=== PATIENT | female | born 1960 | race Caucasian/White ===

== ENCOUNTER 2017-07-20 06:27 | Day surgery (SDC) | END 2017-07-20 11:58 | disposition home or self-care (01) ==

== ENCOUNTER 2017-08-20 10:03 | Day surgery (SDC) | END 2017-08-20 17:10 | disposition home or self-care (01) ==

== ENCOUNTER 2018-10-04 22:59 | Inpatient (IN) | payer OTHER ==
[~2018-10-04] VITALS: Ht 165.1 cm; Wt 66.2 kg
[~2018-10-04 22:59] MED LIST: INSU300I SQ; NOVO3I SC
[2018-10-05] VITALS (11 sets, daily range): BP systolic 96–119; BP diastolic 56–67; PULSE 77–88; RESP 17–18; Ht 165.1 cm; Wt 66.2 kg
[2018-10-05] MEDS ORDERED: SOD CHLORIDE 0.9% 1,000 ML IV ONE (01:30)
[2018-10-05] MEDS ORDERED: INSULIN REGULAR, HUMAN 100 UNIT/1 ML 3ML VIAL SC ONE (01:30)
--- NOTE | 2018-10-05 01:35 | ERD ---
ER Documentation Chief Complaint Chief Complaint HX OF BREAST CA, MASTECTOMY OF L BREAST; AREA NOW BLEEDING HPI This is a 58-year-old female with a prior history of invasive breast cancer who presents for evaluation of bleeding from her left breast site. This happened earlier today, she is currently on chemotherapy, she is followed by Dr. Nash from a surgical standpoint. She denies fever, she has a history of diabetes. A Kerlix band was placed to help control the bleeding. ROS All systems reviewed and are negative except as per history of present illness. Medications Home Meds Reported Medications Insulin Glargine,Hum.rec.anlog (Toujeo Solostar) 300 Unit/1 Ml Insuln.pen, 12 UNIT SQ QHS, EA 07/20/17 Insulin Aspart* (Novolog Insulin Pen*) 100 Unit/Ml Soln, 0 SC .SLIDING SCALE AC, EA 07/20/17 Allergies Allergies: Coded Allergies: cephalexin (Verified Allergy, Unknown, RASH ITCHY, 08/20/17) PMhx/Soc History of Surgery: Yes (LT MASTECTOMY,BREAST IMPLANTS,TUMMY TUCK,LAP BAND) Anesthesia Reaction: Yes (N/V) Hx Neurological Disorder: No Hx Respiratory Disorders: No Hx Cardiac Disorders: No Hx Psychiatric Problems: No Hx Miscellaneous Medical Probl: Yes (LT BREAST CA) Hx Alcohol Use: No Hx Substance Use: No Hx Tobacco Use: No Smoking Status: Never smoker Physical Exam Vitals Vital Signs Date Temp Pulse Resp B/P (MAP) Pulse Ox O2 O2 Flow FiO2 Time Delivery Rate 10/04/18 98.5 105 18 155/72 98 23:02 (99) Physical Exam Const: No acute distress Head: Atraumatic Eyes: Normal Conjunctiva ENT: Normal External Ears, Nose and Mouth. Neck: Full range of motion. No meningismus. Resp: Clear to auscultation bilaterally Cardio: Regular rate and rhythm, no murmurs Chest wall: Left breast area, shows evidence of malignancy, there is some bleeding noted at the 4 o'clock position Abd: Soft, non tender, non distended. Normal bowel sounds Skin: No petechiae or rashes Back: No midline or flank tenderness Ext: No cyanosis, or edema Neur: Awake and alert Psych: Normal Mood and Affect Result Diagram: 10/05/18 0026 10/05/18 0026 Results 24 hrs Laboratory Tests Test 10/05/18 00:26 10/05/18 02:05 White Blood Count 4.9 10^3/ul Red Blood Count 3.26 10^6/ul Hemoglobin 9.4 g/dl Hematocrit 28.3 % Mean Corpuscular Volume 86.8 fl Mean Corpuscular Hemoglobin 28.8 pg Mean Corpuscular Hemoglobin Concent 33.2 g/dl Red Cell Distribution Width 13.7 % Platelet Count 279 10^3/UL Mean Platelet Volume 10.4 fl Immature Granulocytes % 0.200 % Neutrophils % 86.2 % Lymphocytes % 11.2 % Monocytes % 2.2 % Eosinophils % 0.0 % Basophils % 0.2 % Nucleated Red Blood Cells % 0.0 /100WBC Immature Granulocytes # 0.010 10^3/ul Neutrophils # 4.3 10^3/ul Lymphocytes # 0.6 10^3/ul Monocytes # 0.1 10^3/ul Eosinophils # 0.0 10^3/ul Basophils # 0.0 10^3/ul Nucleated Red Blood Cells # 0.0 10^3/ul Prothrombin Time 12.2 Sec Prothrombin Time Ratio 1.0 INR International Normalized Ratio 0.89 Sodium Level 130 mmol/L Potassium Level 4.7 mmol/L Chloride Level 93 mmol/L Carbon Dioxide Level 26 mmol/L Anion Gap 11 Blood Urea Nitrogen 16 mg/dl Creatinine 0.50 mg/dl Est Glomerular Filtrat Rate mL/min > 60 mL/min Glucose Level 702 mg/dl Calcium Level 9.3 mg/dl Total Bilirubin 0.3 mg/dl Direct Bilirubin 0.00 mg/dl Indirect Bilirubin 0.3 mg/dl Aspartate Amino Transf (AST/SGOT) 39 IU/L Alanine Aminotransferase (ALT/SGPT) 27 IU/L Alkaline Phosphatase 141 IU/L Troponin I < 0.012 ng/ml Total Protein 6.9 g/dl Albumin 4.0 g/dl Globulin 2.90 g/dl Albumin/Globulin Ratio 1.37 Bedside Glucose 526 mg/dL Current Medications Medications Dose Sig/Valery Start Time Status Last (Trade) Ordered Route PRN Stop Time Admin Dose Reason Admin Insulin 18 unit ONCE ONCE 10/05/18 DC 10/05/18 Human SC 01:30 10/05/18 02:07 Regular 01:31 (Humulin R) Sodium 1,000 ml @ Q1H ONCE 10/05/18 10/05/18 Chloride 1,000 mls/hr IV 01:30 10/05/18 02:06 02:29 Ondansetron 4 mg ER BRIDGE 10/05/18 HCl (Zofran PRN IV 02:30 10/06/18 Inj) NAUSEA/VOMITI 02:29 NG 650 mg ER BRIDGE 10/05/18 Acetaminophen PRN PO 02:30 10/06/18 (Tylenol .MILD PAIN 02:29 Tab) 1-3 OR TEMP Procedures/MDM This is a 58-year-old female presents for evaluation of bleeding to her left breast, this is in the setting of invasive breast cancer. I spoke with the patient's surgeon, Dr. Hi who recommended that the patient be admitted, and have inpatient evaluation. Dr. Combs is covering for him. Bleeding was control led with pressure, her hemoglobin was 9.4, at this point she does not require transfusion. Her insulin was noted to be in the 700s, she has no evidence of DKA, she will get be given insulin and IV fluids and blood sugar will be rechecked. EKG: Rate/Rhythm: Normal Sinus Rhythm QRS, ST, T-waves: No changes consistent w/ acute ischemia Impression: No evidence of ischemia or arrhythmia Accepting Care Team: Current data and ongoing care discussed. Primary: Bulmaro Consulting: Charity Outstanding Data: none Departure Diagnosis: Primary Impression: Bleeding Additional Impression: Hyperglycemia Condition: Stable JHOANA LAUREN MD Oct 05, 2018 01:35
[2018-10-05] MEDS ORDERED: ACETAMINOPHEN 325 MG TAB PO PRN ×2 (02:30→03:00)
[2018-10-05] MEDS ORDERED: ONDANSETRON 4 MG INJ IV PRN ×2 (02:30→03:00)
[2018-10-05] MEDS: SOD CHLORIDE 0.45% 1,000 ML IV SCH ×2 (02:37→23:19)
[2018-10-05] MEDS ORDERED: NACL 0.9% 3 ML SYG IV SCH (03:00)
[2018-10-05] MEDS ORDERED: NITROGLYCERIN (SL) 0.4 MG TAB SL PRN (03:00)
[2018-10-05] MEDS ORDERED: MAGNESIUM HYDROXIDE 30ML CUP PO PRN (03:00)
[2018-10-05] MEDS ORDERED: GLUCOSE GEL 15 GRAM TUBE BUCCAL PRN (03:00)
[2018-10-05] MEDS ORDERED: DEXTROSE 50% 50 ML SYRINGE IV PRN ×2 (03:00)
[2018-10-05] MEDS ORDERED: GLUCOSE GEL 15 GRAM TUBE PO PRN ×2 (03:00)
[2018-10-05] MEDS ORDERED: ALBUTEROL/IPRATROPIUM (NEB) 3 ML AMP HHN PRN (03:00)
[2018-10-05] MEDS ORDERED: LORAZEPAM 2 MG INJ IV PRN (03:00)
[2018-10-05] MEDS ORDERED: HYDROCODONE/APAP (5/325) TAB PO PRN (03:00)
[2018-10-05] MEDS ORDERED: hydrALAzine 20 MG INJ IV PRN (03:00)
[2018-10-05] MEDS ORDERED: GLUCAGON 1 MG INJ IM PRN (03:00)
[2018-10-05] MEDS ORDERED: DOCUSATE SODIUM 100 MG CAP PO PRN (03:00)
[2018-10-05] MEDS ORDERED: morphine 2 MG INJ IV PRN (03:00)
[2018-10-05] MEDS: INSULIN ASPART [NOVOLOG] 3 ML PEN SC SCH ×5 (05:23→21:41)
[2018-10-05] MEDS: PANTOPRAZOLE (EC) 40 MG TAB PO SCH (06:27)
--- NOTE | 2018-10-05 06:38 | HP ---
Date/Time of Note Date/Time of Note DATE: 10/05/18 TIME: 06:30 Assessment/Plan VTE Prophylaxis SCD applied (from Nsg): Yes Pharmacological prophylaxis: NA/contraindicated Pharm contraindication: bleeding Lines/Catheters IV Catheter Type (from Nrsg): port Assessment/Plan Hospital Course Assessment and plan: 58-year-old female with past medical history of diabetes, invasive breast cancer presently on chemotherapy, who presents for evaluation of bleeding from her left breast site 1. Bleeding from left breast area: Could be related to patient's malignancy and the fact that she has been on chemotherapy recently. Hemoglobin on admission 9.4 -For now continue dressing changes, get wound care consult, hematology oncology consult and general surgery consult -Follow-up TSH, A1c, lipid panel, continue IV fluids and pain control medications 2. Hyperglycemia: Appears to be uncontrolled diabetes, no signs of DKA but sugars were in the 500 range on admission. Presently down to 312. -Continue sliding scale insulin, add Lantus, follow-up A1c Result Diagram: 10/05/18 0026 10/05/18 0026 Results 24hrs Laboratory Tests Test 10/05/18 00:26 10/05/18 02:05 10/05/18 04:49 10/05/18 05:31 White Blood Count 4.9 # Red Blood Count 3.26 L Hemoglobin 9.4 #L Hematocrit 28.3 #L Mean Corpuscular Volume 86.8 Mean Corpuscular 28.8 L Hemoglobin Mean Corpuscular 33.2 Hemoglobin Concent Red Cell Distribution 13.7 Width Platelet Count 279 # Mean Platelet Volume 10.4 Immature Granulocytes % 0.200 Neutrophils % 86.2 H Lymphocytes % 11.2 L Monocytes % 2.2 Eosinophils % 0.0 Basophils % 0.2 Nucleated Red Blood 0.0 Cells % Immature Granulocytes # 0.010 Neutrophils # 4.3 Lymphocytes # 0.6 L Monocytes # 0.1 L Eosinophils # 0.0 Basophils # 0.0 Nucleated Red Blood 0.0 Cells # Prothrombin Time 12.2 13.2 Prothrombin Time Ratio 1.0 1.0 INR International 0.89 0.99 Normalized Ratio Sodium Level 130 L Potassium Level 4.7 Chloride Level 93 L Carbon Dioxide Level 26 Anion Gap 11 Blood Urea Nitrogen 16 Creatinine 0.50 Est Glomerular Filtrat > 60 Rate mL/min Glucose Level 702 *H Calcium Level 9.3 Total Bilirubin 0.3 Direct Bilirubin 0.00 Indirect Bilirubin 0.3 Aspartate Amino 39 Transf (AST/SGOT) Alanine 27 Aminotransferase (ALT/SG PT) Alkaline Phosphatase 141 H Troponin I < 0.012 Total Protein 6.9 Albumin 4.0 Globulin 2.90 Albumin/Globulin Ratio 1.37 Free Thyroxine 1.59 Bedside Glucose 526 *H 364 H Activated 23.5 Partial Thromboplast Time Test 10/05/18 05:55 Bedside Glucose 312 H HPI/ROS Admit Date/Time Admit Date/Time Oct 05, 2018 at 02:11 Hx of Present Illness 58-year-old female with past medical history of diabetes, invasive breast cancer presently on chemotherapy, who presents for evaluation of bleeding from her left breast site. She has noted the bleeding going on for the last 2 days. Denied any upper or lower GI bleeding, no nausea vomiting, no fevers or chills, no diarrhea constipation. Her surgeon is Dr. Nash, her hematology oncology doctor is Dr. Orellana. In the ER today A Kerlix band was placed to help control the bleeding. PMH/Family/Social Past Medical History Medications Current Medications Ondansetron HCl (Zofran Inj) 4 mg ER BRIDGE PRN IV NAUSEA/VOMITING; Start 10/05/18 at 02:30; Stop 10/06/18 at 02:29 Acetaminophen (Tylenol Tab) 650 mg ER BRIDGE PRN PO .MILD PAIN 1-3 OR TEMP; Start 10/05/18 at 02:30; Stop 10/06/18 at 02:29 Miscellaneous Information 12 unit QHS SQ ; Start 10/05/18 at 21:00; Status UNV IV Flush (NS 3 ml) 3 ml PER PROTOCOL IV ; Start 10/05/18 at 03:00 Ondansetron HCl (Zofran Inj) 4 mg Q6H PRN IV NAUSEA/VOMITING; Start 10/05/18 at 03:00 Acetaminophen (Tylenol Tab) 650 mg Q6H PRN PO .PAIN 1-3 OR TEMP; Start 10/05/18 at 03:00 Acetaminophen/ Hydrocodone Bitart ([place] (5/325)) 1 tab Q6H PRN PO .MOD PAIN 4- 6; Start 10/05/18 at 03:00 Morphine Sulfate (morphine) 2 mg Q4H PRN IV .SEVERE PAIN 7-10; Start 10/05/18 at 03:00 Docusate Sodium (Colace) 100 mg Q12H PRN PO .CONSTIPATION; Start 10/05/18 at 03:00 Magnesium Hydroxide (Milk Of Mag) 30 ml DAILY PRN PO .CONSTIPATION; Start 10/05/18 at 03:00 Pantoprazole (Protonix Tab) 40 mg DAILY@06 PO Last administered on 10/05/18at 06:27; Admin Dose 40 MG; Start 10/05/18 at 06:00 Heparin Sodium (Porcine) (Heparin (5000 Units/1ml)) 5,000 unit Q12 SC ; Start 10/05/18 at 09:00 Sodium Chloride 1,000 ml @ 75 mls/hr [id number] IV Last administered on 10/05/18at 02:37; Admin Dose 75 MLS/HR; Start 10/05/18 at 02:37 Lorazepam (Ativan) 0.5 mg Q6H PRN IV ANXIETY; Start 10/05/18 at 03:00 Albuterol/ Ipratropium (Duoneb) 3 ml Q4H RESP THERAPY PRN HHN SHORTNESS OF BREATH; Start 10/05/18 at 03:00 Hydralazine HCl (Apresoline) 10 mg Q6H PRN IV ELEVATED BLOOD PRESSURE; Start 10/05/18 at 03:00 Clonidine (Catapres) 0.1 mg Q6H PRN PO ELEVATED BLOOD PRESSURE; Start 10/05/18 at 03:00 Nitroglycerin (Nitroglycerin (Sl Tab) 0.4 Mg) 1 tab Q5M PRN SL ANGINA; Start 10/05/18 at 03:00 Diagnostic Test (Pha) (Accu-Chek) 1 ea 02 XX ; Start 10/06/18 at 02:00 Insulin Aspart (Novolog Insulin Pen) NOVOLOG *MILD* ALGORI... Q4 SC Last administered on 10/05/18at 05:23; Admin Dose 7 UNIT; Start 10/05/18 at 05:00 Miscellaneous Information 1 ea NOTE XX ; Start 10/05/18 at 03:00 Glucose (Glutose) 15 gm Q15M PRN PO DECREASED GLUCOSE; Start 10/05/18 at 03:00 Glucose (Glutose) 22.5 gm Q15M PRN PO DECREASED GLUCOSE; Start 10/05/18 at 03:00 Dextrose (D50w Syringe) 25 ml Q15M PRN IV DECREASED GLUCOSE; Start 10/05/18 at 03:00 Dextrose (D50w Syringe) 50 ml Q15M PRN IV DECREASED GLUCOSE; Start 10/05/18 at 03:00 Glucagon (Glucagen) 1 mg Q15M PRN IM DECREASED GLUCOSE; Start 10/05/18 at 03:00 Glucose (Glutose) 15 gm Q15M PRN BUCCAL DECREASED GLUCOSE; Start 10/05/18 at 03:00 Coded Allergies: cephalexin (Verified Allergy, Unknown, RASH ITCHY, 08/20/17) Past Surgical History Past Surgical Hx: other (LT MASTECTOMY,BREAST IMPLANTS,TUMMY TUCK,LAP BAND) Social History Alcohol Use: none Smoking Status: Never smoker Drug Use: none Exam/Review of Systems Vital Signs Vitals Vital Signs Date Temp Pulse Resp B/P (MAP) Pulse Ox O2 O2 Flow FiO2 Time Delivery Rate 10/05/18 80 06:17 10/05/18 17 125/75 98 Room Air 05:30 (92) 10/04/18 98.5 23:02 Exam Exam Gen: Lying in bed, no acute distress Head: Atraumatic. Eyes: Normal Conjunctiva. ENT: Normal External Ears, Nose and Mouth. Neck: Full range of motion. No meningismus. Chest wall: Left breast area, shows evidence of malignancy, there is some bleeding noted at the 4 o'clock position Resp: Clear to auscultation bilaterally. Cardio: Regular rate and rhythm. Abd: Soft, nondistended, normal bowel sounds, non tender. Ext: No lower extremity edema bilaterally Neuro: No focal deficits ALEXIA DYER Oct 05, 2018 06:38
[2018-10-05] MEDS ORDERED: INSULIN GLARGINE [LANTus] (100 UNITS/ML) SYG SC SCH (08:00)
[2018-10-05] MEDS ORDERED: GABAPENTIN 100 MG CAP PO SCH (09:00)
[2018-10-05] MEDS ORDERED: HEPARIN 5,000 UNIT/1 ML VIAL SC SCH (09:00)
--- NOTE | 2018-10-05 10:56 | PN ---
Date/Time of Note Date/Time of Note DATE: 10/05/18 TIME: 10:53 Assessment/Plan VTE Prophylaxis SCD applied (from Nsg): Yes SCD contraindicated: low risk/ambulating Pharmacological prophylaxis: NA/contraindicated Pharm contraindication: low risk/ambulating, bleeding Lines/Catheters [facility] Assessment/Plan Problems: (1) Diabetes mellitus type 2 in nonobese Status: Chronic Comment: Her blood sugars are coming under control nicely. Continue current treatment and adjustment. (2) Anemia Status: Chronic Comment: Continue to follow the H&H due to the history of bleeding. Qualifiers: Anemia type: unspecified type Qualified Codes: D64.9 - Anemia, unspecified (3) Carcinoma of left breast Onset Date: ~ 09/2013 Status: Chronic Comment: Oncology will be seeing the patient. In addition I will ask radiation oncology to see her. These note if the bleeding is coming from an esophageal source as opposed to other we will cover for that Qualifiers: Breast location: unspecified site of breast Estrogen receptor status: negative Patient sex: female Qualified Codes: C50.912 - Malignant neoplasm of unspecified site of left female breast; Z17.1 - Estrogen receptor negative status [ER-] (4) Port-A-Cath in place Status: Chronic Comment: Noted. (5) Bleeding Status: Acute Comment: Cover for GI source, follow H&H (6) History of laparoscopic adjustable gastric banding Status: Chronic Comment: Noted. Result Diagram: 10/05/18 0026 10/05/18 0026 Results 24hrs Laboratory Tests Test 10/05/18 00:26 10/05/18 02:05 10/05/18 04:49 10/05/18 05:31 White Blood Count 4.9 # Red Blood Count 3.26 L Hemoglobin 9.4 #L Hematocrit 28.3 #L Mean Corpuscular Volume 86.8 Mean Corpuscular 28.8 L Hemoglobin Mean Corpuscular 33.2 Hemoglobin Concent Red Cell Distribution 13.7 Width Platelet Count 279 # Mean Platelet Volume 10.4 Immature Granulocytes % 0.200 Neutrophils % 86.2 H Lymphocytes % 11.2 L Monocytes % 2.2 Eosinophils % 0.0 Basophils % 0.2 Nucleated Red Blood 0.0 Cells % Immature Granulocytes # 0.010 Neutrophils # 4.3 Lymphocytes # 0.6 L Monocytes # 0.1 L Eosinophils # 0.0 Basophils # 0.0 Nucleated Red Blood 0.0 Cells # Prothrombin Time 12.2 13.2 Prothrombin Time Ratio 1.0 1.0 INR International 0.89 0.99 Normalized Ratio Sodium Level 130 L Potassium Level 4.7 Chloride Level 93 L Carbon Dioxide Level 26 Anion Gap 11 Blood Urea Nitrogen 16 Creatinine 0.50 Est Glomerular Filtrat > 60 Rate mL/min Glucose Level 702 *H Calcium Level 9.3 Total Bilirubin 0.3 Direct Bilirubin 0.00 Indirect Bilirubin 0.3 Aspartate Amino 39 Transf (AST/SGOT) Alanine 27 Aminotransferase (ALT/SG PT) Alkaline Phosphatase 141 H Troponin I < 0.012 Total Protein 6.9 Albumin 4.0 Globulin 2.90 Albumin/Globulin Ratio 1.37 Free Thyroxine 1.59 Bedside Glucose 526 *H 364 H Activated 23.5 Partial Thromboplast Time Test 10/05/18 05:55 10/05/18 08:02 Bedside Glucose 312 H 196 Subjective 24 Hr Interval Summary Free Text/Dictation Patient reports that she was not bleeding from the left breast site although the ER nurses notes state that, the ER doctor's notes state that, and the admission physician states that. She states that she was bleeding from her esophageal ulcers and it has fortunately stopped. Regardless she was reporting that there is no further bleeding Constitutional: no complaints Respiratory: no complaints Cardiovascular: no complaints Gastrointestinal: no complaints Exam/Review of Systems Exam Vitals Vital Signs Date Temp Pulse Resp B/P (MAP) Pulse Ox O2 O2 Flow FiO2 Time Delivery Rate 10/05/18 81 08:04 10/05/18 98.4 18 114/56 97 Room Air 07:43 (75) Constitutional: alert, oriented Neck: supple, non-tender Respiratory: clear to auscultation, normal air movement, other (No evidence of bleeding from the area of the breast prior surgeries, bilateral implants) Cardiovascular: regular rate and rhythm, nl pulses Gastrointestinal: soft, nl liver, spleen, non-tender Results Results 24hrs Laboratory Tests Test 10/05/18 00:26 10/05/18 02:05 10/05/18 04:49 10/05/18 05:31 White Blood Count 4.9 # Red Blood Count 3.26 L Hemoglobin 9.4 #L Hematocrit 28.3 #L Mean Corpuscular Volume 86.8 Mean Corpuscular 28.8 L Hemoglobin Mean Corpuscular 33.2 Hemoglobin Concent Red Cell Distribution 13.7 Width Platelet Count 279 # Mean Platelet Volume 10.4 Immature Granulocytes % 0.200 Neutrophils % 86.2 H Lymphocytes % 11.2 L Monocytes % 2.2 Eosinophils % 0.0 Basophils % 0.2 Nucleated Red Blood 0.0 Cells % Immature Granulocytes # 0.010 Neutrophils # 4.3 Lymphocytes # 0.6 L Monocytes # 0.1 L Eosinophils # 0.0 Basophils # 0.0 Nucleated Red Blood 0.0 Cells # Prothrombin Time 12.2 13.2 Prothrombin Time Ratio 1.0 1.0 INR International 0.89 0.99 Normalized Ratio Sodium Level 130 L Potassium Level 4.7 Chloride Level 93 L Carbon Dioxide Level 26 Anion Gap 11 Blood Urea Nitrogen 16 Creatinine 0.50 Est Glomerular Filtrat > 60 Rate mL/min Glucose Level 702 *H Calcium Level 9.3 Total Bilirubin 0.3 Direct Bilirubin 0.00 Indirect Bilirubin 0.3 Aspartate Amino 39 Transf (AST/SGOT) Alanine 27 Aminotransferase (ALT/SG PT) Alkaline Phosphatase 141 H Troponin I < 0.012 Total Protein 6.9 Albumin 4.0 Globulin 2.90 Albumin/Globulin Ratio 1.37 Free Thyroxine 1.59 Bedside Glucose 526 *H 364 H Activated 23.5 Partial Thromboplast Time Test 10/05/18 05:55 10/05/18 08:02 Bedside Glucose 312 H 196 Medications Medication Current Medications Ondansetron HCl (Zofran Inj) 4 mg ER BRIDGE PRN IV NAUSEA/VOMITING; Start 10/05/18 at 02:30; Stop 10/06/18 at 02:29 Acetaminophen (Tylenol Tab) 650 mg ER BRIDGE PRN PO .MILD PAIN 1-3 OR TEMP; Start 10/05/18 at 02:30; Stop 10/06/18 at 02:29 IV Flush (NS 3 ml) 3 ml PER PROTOCOL IV ; Start 10/05/18 at 03:00 Ondansetron HCl (Zofran Inj) 4 mg Q6H PRN IV NAUSEA/VOMITING; Start 10/05/18 at 03:00 Acetaminophen (Tylenol Tab) 650 mg Q6H PRN PO .PAIN 1-3 OR TEMP; Start 10/05/18 at 03:00 Acetaminophen/ Hydrocodone Bitart ([place] (5/325)) 1 tab Q6H PRN PO .MOD PAIN 4- 6; Start 10/05/18 at 03:00 Morphine Sulfate (morphine) 2 mg Q4H PRN IV .SEVERE PAIN 7-10; Start 10/05/18 at 03:00 Docusate Sodium (Colace) 100 mg Q12H PRN PO .CONSTIPATION; Start 10/05/18 at 03:00 Magnesium Hydroxide (Milk Of Mag) 30 ml DAILY PRN PO .CONSTIPATION; Start 10/05/18 at 03:00 Pantoprazole (Protonix Tab) 40 mg DAILY@06 PO Last administered on 10/05/18at 06:27; Admin Dose 40 MG; Start 10/05/18 at 06:00 Sodium Chloride 1,000 ml @ 75 mls/hr [id number] IV Last administered on 10/05/18at 02:37; Admin Dose 75 MLS/HR; Start 10/05/18 at 02:37 Lorazepam (Ativan) 0.5 mg Q6H PRN IV ANXIETY; Start 10/05/18 at 03:00 Albuterol/ Ipratropium (Duoneb) 3 ml Q4H RESP THERAPY PRN HHN SHORTNESS OF BREATH; Start 10/05/18 at 03:00 Hydralazine HCl (Apresoline) 10 mg Q6H PRN IV ELEVATED BLOOD PRESSURE; Start 10/05/18 at 03:00 Clonidine (Catapres) 0.1 mg Q6H PRN PO ELEVATED BLOOD PRESSURE; Start 10/05/18 at 03:00 Nitroglycerin (Nitroglycerin (Sl Tab) 0.4 Mg) 1 tab Q5M PRN SL ANGINA; Start 10/05/18 at 03:00 Diagnostic Test (Pha) (Accu-Chek) 1 ea 02 XX ; Start 10/06/18 at 02:00 Insulin Aspart (Novolog Insulin Pen) NOVOLOG *MILD* ALGORI... Q4 SC Last administered on 10/05/18at 09:28; Admin Dose 2 UNIT; Start 10/05/18 at 05:00 Miscellaneous Information 1 ea NOTE XX ; Start 10/05/18 at 03:00 Glucose (Glutose) 15 gm Q15M PRN PO DECREASED GLUCOSE; Start 10/05/18 at 03:00 Glucose (Glutose) 22.5 gm Q15M PRN PO DECREASED GLUCOSE; Start 10/05/18 at 03:00 Dextrose (D50w Syringe) 25 ml Q15M PRN IV DECREASED GLUCOSE; Start 10/05/18 at 03:00 Dextrose (D50w Syringe) 50 ml Q15M PRN IV DECREASED GLUCOSE; Start 10/05/18 at 03:00 Glucagon (Glucagen) 1 mg Q15M PRN IM DECREASED GLUCOSE; Start 10/05/18 at 03:00 Glucose (Glutose) 15 gm Q15M PRN BUCCAL DECREASED GLUCOSE; Start 10/05/18 at 03:00 Insulin Glargine (Lantus) 20 units DAILY@0800 SC Last administered on 10/05/18at 09:28; Admin Dose 20 UNITS; Start 10/05/18 at 08:00 Gabapentin (Neurontin) 200 mg TID PO Last administered on 10/05/18at 09:15; Admin Dose 200 MG; Start 10/05/18 at 09:00 TEN HARRISON MD Oct 05, 2018 10:56
[2018-10-05] MEDS: ACCU-CHEK XX SCH ×4 (11:30→20:00)
[2018-10-05] MEDS: GABAPENTIN 300 MG CAP PO SCH ×2 (12:39→21:00)
[2018-10-05] MEDS ORDERED: [UNRECOGNIZED DRUG - OTHER] SQ SCH (21:00)
[2018-10-05] MEDS ORDERED: INSULIN GLARGINE HUM REC ANLOG 12 UNIT SQ SCH (21:00)
--- NOTE | 2018-10-05 23:27 | CONS ---
DATE OF ADMISSION: 10/05/2018 DATE OF CONSULTATION: 10/05/2018 TYPE OF CONSULTATION: Surgical. Consultation actually was requested from Dr. Nash, but Dr. Nash is not available and I am covering for Dr. Nash/seeing the patient for Dr. Nash. REASON FOR CONSULTATION: The patient actually was admitted for two reason, hyperglycemia and bleeding from the left chest wall site of previous or recent breast cancer. Thank you, Dr. Dyer, for consultation. I saw the patient and examined the patient. Reviewed the chart. According to the information this unfortunate lady, who is 58-year-old female that she had a left breast cancer, mastectomy done a couple of years ago. It is not clear, who did the procedure, but most probably was not done here and then the patient visited Dr. Nash in [address] Nash did a left chest wall biopsy, suspicious for recurrence of the cancer of the breast, which was positive. Therefore, 08/20/2017, Dr. Nash did the excision of the recurrent cancer to the chest wall and apparently this is the last time the patient saw Dr. Nash because she said she never again refered to Dr. Nash and then she has been seen by , Kindergartner, and she has been treated with chemotherapy, and actually recently, also, she got a dose of chemotherapy and states she has a port for chemotherapy. The reason for this admission as was mentioned is that yesterday, the patient was changing the dressing and suddenly she noticed that there was a pumper and she is bleeding from a spot over the chest wall, so she got worried about it and she packed it and she referred to the emergency room. In the emergency room, also, they found that she had high blood sugar around 700 so the patient was admitted. PAST MEDICAL HISTORY: Unremarkable except what was mentioned. PAST SURGICAL HISTORY: She has had lap band operation. She has had a tummy tuck and she has had breast implants in the past and also the last operation she had is left breast mastectomy for cancer of breast. SOCIAL HISTORY: No smoking. ALLERGIES: SHE IS ALLERGIC TO CEPHALEXIN. PHYSICAL EXAMINATION: GENERAL: The patient is awake, alert, oriented, in no acute distress at this time. VITAL SIGNS: Today, temperature maximum is 98.8, heart rate 82, respirations 18, blood pressure 109/67, saturation 97% on room air. HEAD AND NECK: Normal. . No supraclavicular lymph nodes. HEART: Regular. LUNGS: Clear. ABDOMEN: Soft. Scar of previous operation ,A dressing was wrapped around the chest. We removed some sponges, which was over the left chest wall removed. Upon removing all the dressings, one can notice and can see extensive cancer involving the skin of the anterior chest wall and most probably have extended deep involving the whole chest wall area. There are several semi-necrotic spots over the vegetations, and at this time, none of them is actually actively bleeding. But there is lobulation of the cancer of the breast, which now involve the chest wall, the skin and probably deeper layers as can be evaluated by the physical examination. Of course the patient has had a CT scan of the chest done yesterday and I am going to report that. Lower extremity negative, no pitting edema. Right axillary area appears to be a large mass probably 4 cm x 2 cm in size. This has been reported as the right axillary lymph node on the CT scan. It should be mentioned that at this time, Xeroform dressing was applied over the bulk of the recurrent vegetative tumor of chest wall on the left side and then several sponges and ABDs and Jhon bandage was wrapped all around it snuggly to prevent any bleeding. Chest CT scan report is of course in the computer, but briefly reported as follows: 1. Large presumed recurrent or residual left breast cancer with possible slight extension through the left chest wall. Associated skin thickening and subcutaneous fat stranding. No definite drainable fluid collection, although there may be a cystic or necrotic area within the tumor. No definite bony metastatic disease. 2. Very large right axillary lymph node seen measuring 4.2 x 2.5 cm. 3. Prior granulomatous disease. Several tiny noncalcified lung nodules was also seen, metastatic disease cannot be excluded, although this could be due to prior infection as well. Comparison with prior studies or attention on followup studies be suggested. This was read by Dr. Cindy Parham on 10/05/2018. In conclusion, this is a 58-year-old female, who came to the emergency room because of bleeding from the left chest wall, which is of course the site of previous mastectomy and recurrence of the cancer of the left breast and the patient has been under chemotherapy and has a port over there, and yesterday noticed bleeding from that spot. Also, the patient was found in the emergency room to have high blood sugar around 700. PLAN: At this time, the patient does not have any bleeding we wrapped the area of the tumor and bleeding with Xeroform and sponges and Jhon bandage around it. I do not expect massive bleeding from the tumor that I could see, but it is possible that may start oozing again. From surgical point of view, there is not much that we can do at this time unless we want consider extensive chest wall removal and reconstruction that is an extensive operation that I cannot do it and I would not do it. I am waiting for Dr. Nash to come back from vacation and he is going to be back by October 14 and I advised the patient to make an appointment to come to the office with Dr. Nash to see if he can offer the patient any surgical intervention. Otherwise, the patient is to continue with chemotherapy and hope for the best. Meanwhile, as long as the patient is in the hospital, we will continue to follow, but from surgical point of view, she has stopped bleeding, probably she can be discharged whenever it is okay with medical service. Dictated By: BROOKLYNN HERNANDEZ MD PS/NTS Conf#: [id number] DID#: [id number] CC: RONA MO MD; ALEXIA DYER;*EndCC* MTDD
[2018-10-06] VITALS (7 sets, daily range): BP systolic 110–118; BP diastolic 60–74; PULSE 78–84; RESP 17–18
[2018-10-06] MEDS: HYDROCODONE/APAP (10/325) TAB PO PRN ×3 (00:54→09:22)
[2018-10-06] MEDS: INSULIN ASPART [NOVOLOG] 3 ML PEN SC SCH ×2 (01:09→05:37)
[2018-10-06] MEDS ORDERED: ACCU-CHEK XX SCH (02:00)
[2018-10-06] MEDS: PANTOPRAZOLE (EC) 40 MG TAB PO SCH (05:28)
[2018-10-06] MEDS ORDERED: INSULIN GLARGINE [LANTus] (100 UNITS/ML) SYG SC SCH (08:00)
[2018-10-06] MEDS ORDERED: PATIENT'S OWN MEDICATION PO SCH (09:00)
--- NOTE | 2018-10-06 09:20 | DS ---
Date/Time of Note Date/Time of Note DATE: 10/06/18 TIME: 09:17 Discharge Summary Admission/Discharge Info Admit Date/Time Oct 05, 2018 at 02:11 Discharge Date/Time October 06, 2018 Discharge Diagnosis Left breast carcinoma metastatic with bleeding from the primary tumor; diabetes mellitus type 2; iron deficiency anemia Patient Condition: Fair Consults General surgery-Dr. Combs Procedures CT scan chest Hx of Present Illness Hx of Present Illness 58-year-old female with past medical history of diabetes, invasive breast cancer presently on chemotherapy, who presents for evaluation of bleeding from her left breast site. She has noted the bleeding going on for the last 2 days. Denied any upper or lower GI bleeding, no nausea vomiting, no fevers or chills, no diarrhea constipation. Her surgeon is Dr. Nash, her hematology oncology doctor is Dr. Morfin. In the ER today A Kerlix band was placed to help control the bleeding. Hospital Course 58-year-old female admitted with bleeding on referral from Dr. Sepulveda on's office. She did not have any significant bleeding after arrival here and was actually seen by general surgical consultation whose notes are in the electronic medical record. At this time she is stable and the patient is interested in being discharged. She has adequate rehabilitation potential, she has no known communicable diseases, she is not hazard to herself or others. Home Meds Reported Medications Insulin Glargine,Hum.rec.anlog (Toujeo Solostar) 300 Unit/1 Ml Insuln.pen, 12 UNIT SQ QHS, EA 07/20/17 Insulin Aspart* (Novolog Insulin Pen*) 100 Unit/Ml Soln, 0 SC .SLIDING SCALE , EA 07/20/17 Follow-up Plan Dr. Nash in 1 week; Dr. Morfin in 2 weeks Primary Care Provider Lisa Morfin; Time spent on discharge: > 30 minutes Pending Labs Laboratory Tests Test 10/05/18 12:33 10/05/18 12:59 10/05/18 15:38 10/05/18 17:19 Bedside 221 261 336 Glucose mg/dL (70-220) mg/dL (70-220) mg/dL (70-220) Iron Level 58 ug/dl (35-150) Total Iron 310 Binding ug/dl (241-421 Capacity ) Percent Iron 19 % Saturation SAT (22-52) Ferritin 35.2 ng/ml (11.1-26 4.0) Test 10/05/18 21:31 10/06/18 00:52 10/06/18 05:31 Bedside 319 273 230 Glucose mg/dL (70-220) mg/dL (70-220) mg/dL (70-220) Copies To: CC: LOIDA NASH MD; LISA MORFIN M.D. ; TEN HARRISON MD Oct 06, 2018 09:20
== END 2018-10-06 11:50 | disposition home or self-care (01) | DRG 599 ==
LOC: E/R 22:59 → 6WM 10-05 02:11
PROVIDERS: ADMIT Hospitalist; ATTEND Hospitalist
DX: C50.912 Malignant neoplasm of unspecified site of left female breast (principal); E11.65 Type 2 diabetes mellitus with hyperglycemia; Z79.899 Other long term (current) drug therapy; Z17.1 Estrogen receptor negative status [ER-]; Z98.84 Bariatric surgery status; D50.9 Iron deficiency anemia, unspecified
CPT/HCPCS: 71250; 80053; 82728; 82962; 83540; 84439; 84484; 85025; 85610; 85730; 93005; 96372; J1815; J7030

== ENCOUNTER 2019-02-25 19:31 | Inpatient (IN) | payer OTHER ==
[~2019-02-25] VITALS: Ht 165.1 cm; Wt 69.0 kg
[~2019-02-25 19:31] MED LIST changes: +CIPR500T4 PO; +GABA300C16 ORAL; +GLIP-160 PO; +GRAN1PAT SUBDERMAL; +INSU100I33 SC; +METR60GE4 SUBD; +NEED-135 MC; +PANT40TA4 PO; +SULF1TAB31 PO
[2019-02-25] MEDS ORDERED: SODIUM CHLORIDE 0.9% 1L BAG IV* STA (20:27)
[2019-02-25] MEDS ORDERED: VANCOMYCIN 1 GM (PMX) 250 ML IVPB STA (21:45)
[2019-02-25] MEDS ORDERED: PIPER-TAZO 3.375 GM IV (PMX) 100 ML IVPB STA (21:45)
[2019-02-25] MEDS ORDERED: INSULIN LISPRO 100 UNIT/ML VIAL SC STA (21:48)
[2019-02-25] MEDS ORDERED: HYDROCODONE/APAP (10/325) TAB PO ONE (22:30)
[2019-02-25] MEDS ORDERED: ONDANSETRON 4 MG INJ IV PRN (22:30)
[2019-02-25] MEDS ORDERED: ACETAMINOPHEN 325 MG TAB PO PRN (22:30)
[2019-02-26] MEDS: DEXTROSE 5%-0.45% NACL 1,000 ML IV SCH ×2 (00:51→06:35)
[2019-02-26] MEDS ORDERED: NACL 0.9% 3 ML SYG IV SCH (01:00)
[2019-02-26] MEDS ORDERED: ACETAMINOPHEN 325 MG TAB PO PRN (01:00)
[2019-02-26] MEDS ORDERED: HYDROCODONE/APAP (5/325) TAB PO PRN (01:00)
[2019-02-26] MEDS ORDERED: ONDANSETRON 4 MG INJ IV PRN (01:00)
[2019-02-26] MEDS ORDERED: ACCU-CHEK XX ONE (01:00)
[2019-02-26] MEDS ORDERED: ALBUTEROL/IPRATROPIUM (NEB) 3 ML AMP HHN PRN (01:00)
[2019-02-26] MEDS ORDERED: INSULIN ASPART [NOVOLOG] 3 ML PEN SC ONE (01:30)
[2019-02-26] MEDS ORDERED: DEXTROSE 50% 50 ML SYRINGE IV PRN ×2 (01:30)
[2019-02-26] MEDS ORDERED: GLUCAGON 1 MG INJ IM PRN (01:30)
[2019-02-26] MEDS: INSULIN GLARGINE [LANTus] (100 UNITS/ML) SYG SC SCH ×2 (01:30→21:14)
[2019-02-26] MEDS ORDERED: GLUCOSE GEL 15 GRAM TUBE BUCCAL PRN (01:30)
[2019-02-26] MEDS ORDERED: GLUCOSE GEL 15 GRAM TUBE PO PRN ×2 (01:30)
[2019-02-26] MEDS: INSULIN ASPART [NOVOLOG] 3 ML PEN SC SCH ×8 (01:30→21:15)
[2019-02-26] MEDS: ACCU-CHEK XX SCH (02:00)
[2019-02-26 05:27] VITALS: BP 96/52; PULSE 110; RESP 16
[2019-02-26 05:50] VITALS: Ht 165.1 cm; Wt 69.0 kg
[2019-02-26] MEDS ORDERED: VANCOMYCIN IV PER PHARMACY XX SCH (06:00)
[2019-02-26] MEDS: PIPER-TAZO 3.375 GM IV (PMX) 100 ML IVPB SCH ×3 (06:37→18:55)
[2019-02-26 07:29] VITALS: BP 88/50; PULSE 87; RESP 20
[2019-02-26] MEDS: SOD CHLORIDE 0.9% 1,000 ML IV SCH ×2 (08:45→17:30)
[2019-02-26] MEDS ORDERED: NPH, HUMAN INSULIN ISOPHANE 3ML VIAL SC ONE (09:00)
[2019-02-26] MEDS: GABAPENTIN 300 MG CAP PO SCH ×3 (09:06→22:03)
[2019-02-26] MEDS: HYDROCODONE/APAP (5/325) TAB PO PRN ×2 (09:06→21:03)
[2019-02-26 11:15] VITALS: BP 80/52; PULSE 88; RESP 20
[2019-02-26] MEDS: VANCOMYCIN 750 MG (PMX) 250 ML IVPB SCH ×2 (12:43→22:07)
[2019-02-26 15:17] VITALS: BP 100/61; PULSE 100; RESP 20
[2019-02-26 20:25] VITALS: BP 94/55; PULSE 107; RESP 18
[2019-02-27] MEDS: PIPER-TAZO 3.375 GM IV (PMX) 100 ML IVPB SCH ×3 (00:49→12:00)
[2019-02-27] MEDS: INSULIN ASPART [NOVOLOG] 3 ML PEN SC SCH ×9 (00:52→21:35)
[2019-02-27 01:13] VITALS: BP 92/56; PULSE 83; RESP 20
[2019-02-27] MEDS: ACCU-CHEK XX SCH (01:59)
[2019-02-27] MEDS: SOD CHLORIDE 0.9% 1,000 ML IV SCH ×2 (03:30→12:57)
[2019-02-27 04:00] VITALS: BP 99/55; PULSE 80; RESP 18
[2019-02-27] MEDS: HYDROCODONE/APAP (5/325) TAB PO PRN ×3 (04:32→17:44)
[2019-02-27] MEDS: GABAPENTIN 300 MG CAP PO SCH ×3 (05:10→21:32)
[2019-02-27 07:24] VITALS: BP 85/51; PULSE 84; RESP 20
[2019-02-27] MEDS ORDERED: POTASSIUM CHLORIDE (SR) 20 MEQ TAB PO STA (08:36)
[2019-02-27 10:56] VITALS: BP 82/51; PULSE 90; RESP 20
[2019-02-27] MEDS ORDERED: VANCOMYCIN 1.25 GM/NS 250 ML 250 ML IVPB SCH (12:00)
[2019-02-27 14:57] VITALS: BP 95/57; PULSE 105; RESP 20
[2019-02-27] MEDS ORDERED: PHENOL 1.4% SOLN 180 ML BTL MT PRN (15:30)
[2019-02-27] MEDS: CIPROFLOXACIN 500 MG TAB PO SCH (17:06)
[2019-02-27 20:00] VITALS: BP 85/52; PULSE 101; RESP 18
[2019-02-27] MEDS: ZYVOX 600 MG TAB PO SCH (21:32)
[2019-02-27] MEDS: INSULIN GLARGINE [LANTus] (100 UNITS/ML) SYG SC SCH (21:36)
[2019-02-28] VITALS (14 sets, daily range): BP systolic 94–138; BP diastolic 52–67; PULSE 70–108; RESP 10–18
[2019-02-28] MEDS: SOD CHLORIDE 0.9% 1,000 ML IV SCH ×2 (00:02→10:32)
[2019-02-28] MEDS: INSULIN ASPART [NOVOLOG] 3 ML PEN SC SCH ×6 (01:00→17:30)
[2019-02-28] MEDS: ACCU-CHEK XX SCH ×2 (02:28→02:29)
[2019-02-28] MEDS: morphine 2 MG INJ IV PRN ×2 (05:09→14:09)
[2019-02-28] MEDS: GABAPENTIN 300 MG CAP PO SCH ×3 (06:00→20:22)
[2019-02-28] MEDS: CIPROFLOXACIN 500 MG TAB PO SCH ×2 (06:00→17:25)
[2019-02-28] MEDS: ZYVOX 600 MG TAB PO SCH ×2 (08:43→20:22)
[2019-02-28] MEDS ORDERED: FENTAnyl 50 MCG/ML VIAL ONE (09:15)
[2019-02-28] MEDS ORDERED: PROPOFOL 20 ML ONE (09:16)
[2019-02-28] MEDS ORDERED: LIDOCAINE 2% (SDV) 5 ML INJ ONE (09:16)
[2019-02-28] MEDS ORDERED: FENTAnyl 50 MCG/ML VIAL IV PRN (10:00)
[2019-02-28] MEDS ORDERED: LABETALOL HCL 20MG INJ IV PRN (10:00)
[2019-02-28] MEDS ORDERED: PANTOPRAZOLE (EC) 40 MG TAB PO ONE (10:00)
[2019-02-28] MEDS ORDERED: ONDANSETRON 4 MG INJ IV PRN (10:00)
[2019-02-28] MEDS ORDERED: INSULIN ASPART [NOVOLOG] 3 ML PEN SC SCH (17:25)
[2019-02-28] MEDS: HYDROCODONE/APAP (5/325) TAB PO PRN (17:25)
[2019-02-28] MEDS: INSULIN GLARGINE [LANTus] (100 UNITS/ML) SYG SC SCH (20:29)
== END 2019-02-28 21:55 | disposition home or self-care (01) | DRG 872 ==
LOC: E/R 19:31 → TEL 22:11 → CANRESERV 02-26 00:47 → TEL 02-26 05:10
PROVIDERS: ADMIT Internal Medicine; ATTEND Internal Medicine
PROC: 0DB18ZX Excision of Upper Esophagus, Via Natural or Artificial Opening Endoscopic, Diagnostic (ICD-10-PCS; 2019-02-28)
PROC: 30233N1 Transfusion of Nonautologous Red Blood Cells into Peripheral Vein, Percutaneous Approach (ICD-10-PCS; 2019-02-28)
PROC: 0DB38ZX Excision of Lower Esophagus, Via Natural or Artificial Opening Endoscopic, Diagnostic (ICD-10-PCS; principal; 2019-02-28 09:30)
DX: A41.9 Sepsis, unspecified organism (principal); E87.1 Hypo-osmolality and hyponatremia; C79.9 Secondary malignant neoplasm of unspecified site; E10.65 Type 1 diabetes mellitus with hyperglycemia; D50.9 Iron deficiency anemia, unspecified; K20.0 Eosinophilic esophagitis; N61.0 Mastitis without abscess; R13.10 Dysphagia, unspecified; Z98.84 Bariatric surgery status; Z85.3 Personal history of malignant neoplasm of breast; Z90.12 Acquired absence of left breast and nipple; Z79.899 Other long term (current) drug therapy; Z79.84 Long term (current) use of oral hypoglycemic drugs
CPT/HCPCS: 36415; 36430; 71045; 80048; 80069; 80076; 80202; 81003; 82803; 82962; 83036; 83605; 83735; 84100; 84484; 85025; 85610; 85730; 86850; 86900; 86901; 86920; 87086; 88305; 88313; 92610; 93005; 96372; 96374; J1815; J2270; J2543; J3010; J3370; J7030; J7042; P9016